=== PATIENT | male | born 1980 | race Caucasian/White ===

== ENCOUNTER → 2025-02-06 | Outpatient (CLI) | payer SELFPAY ==
--- NOTE | 2025-02-06 09:10 | ECHOCS_ITS ---
Reason For Study Reason For Study: MURMUR Procedure This was a 2D Doppler, Color Flow transthoracic echocardiogram. The study was technically difficult. Due to body habitus. Contrast injection was performed. Exam performed in department. Left Ventricle Normal LV size. Left ventricular systolic function is normal. The left ventricular ejection fraction is 65 %. No regional wall motion abnormalities noted. Right Ventricle Normal RV size. Normal systolic function. Atria Normal left atrium. Normal right atrium. Mitral Valve Normal mitral valve. Tricuspid Valve Normal tricuspid valve. Aortic Valve The aortic valve is not well visualized. Pulmonic Valve The pulmonic valve is not well visualized. Great Vessels Normal aortic root. The pulmonary artery is normal size. Inferior vena cava collapse with respiration. Pericardium/Pleural No pericardial effusion. Medication 22 gauge I.V. with prn adaptor inserted into right arm. Diluted definity 2.0ml given slow IV push to enhance endocardial definition. MMode/2D Measurements & Calculations LVIDd: 4.6 cm IVSd: 1.3 cm LVOT diam: 2.5 cm LVIDs: 2.8 cm LVPWd: 1.0 cm RVDd: 4.2 cm FS: 38.5 % LVOT area: 4.8 cm2 Ao root diam: 3.2 cm LAV(MOD-bp): 65.6 ml LVAd ap4: 43.0 cm2 LAV(MOD-bp) Indexed: 25.6 ml/m2 LVLd ap4: 9.8 cm LAV(MOD-sp2): 64.2 ml EDV(MOD-sp4): 158.0 ml LAV(MOD-sp4): 65.5 ml EDV(sp4-el): 161.1 ml LVAs ap4: 26.1 cm2 LVLs ap4: 8.5 cm ESV(MOD-sp4): 67.1 ml ESV(sp4-el): 68.3 ml EF(MOD-sp4): 57.5 % EF(sp4-el): 57.6 % LVAd ap2: 40.0 cm2 SV(MOD-sp4): 90.9 ml SV(MOD-sp2): 84.6 ml LVLd ap2: 9.4 cm SI(MOD-sp4): 35.5 ml/m2 SI(MOD-sp2): 33.1 ml/m2 EDV(MOD-sp2): 145.7 ml EDV(sp2-el): 143.8 ml LVAs ap2: 23.8 cm2 LVLs ap2: 7.8 cm ESV(MOD-sp2): 61.2 ml ESV(sp2-el): 61.9 ml EF(MOD-sp2): 58.0 % SV(sp4-el): 92.8 ml LA dimension(2D): 3.7 cm LA A4 area: 21.0 cm2 TAPSE: 2.9 cm Time Measurements MV dec time: 0.21 sec Doppler Measurements & Calculations MV E max darrick: 74.2 cm/sec Lat Peak E' Darrick: 11.4 cm/sec Med Peak E' Darrick: 16.9 cm/sec MV A max darrick: 60.0 cm/sec E/E' lat: 6.5 E/E' med: 4.4 MV E/A: 1.2 MV V2 max: 70.5 cm/sec Ao V2 max: 233.7 cm/sec LV V1 max: 100.2 cm/sec MV max P.0 mmHg Ao max P.8 mmHg LV V1 max P.0 mmHg MV V2 mean: 48.8 cm/sec Ao V2 mean: 178.7 cm/sec LV V1 mean P.5 mmHg MV mean P.0 mmHg Ao mean P.8 mmHg LV V1 mean: 75.3 cm/sec MV V2 VTI: 15.1 cm Ao V2 VTI: 43.9 cm LV V1 VTI: 19.1 cm MVA(VTI): 6.1 cm2 AV (velocity ratio): 0.44 ISABELLE(I,D): 2.1 cm2 ISABELLE(V,D): 2.1 cm2 SV(LVOT): 91.5 ml PA V2 max: 156.8 cm/sec PI dec slope: 303.9 cm/sec2 PA V2 mean: 109.6 cm/sec ECHO/Echo Complete W/ Contrast Interpretation Summary Normal LV size. Left ventricular systolic function is normal. The left ventricular ejection fraction is 65 %. Contrast injection was performed. Ordering Physician: Josue Corrales Referring Physician: Josue Corrales Performed By: Chantal Waters, KIRSTEN, RVT
== END | disposition home or self-care (01) ==
PROVIDERS: PCP Family Medicine; Referring Provider Family Medicine; Visit Provider Family Medicine
DX: R01.1 Cardiac murmur, unspecified (principal)
CPT/HCPCS: 93306; Q9957; A4216; C8929